=== PATIENT | male | born 1985 | race Caucasian/White ===

== ENCOUNTER 2017-06-24 18:31 | Emergency (ER) | payer SELFPAY ==
[~2017-06-24] VITALS: Ht 180.3 cm; Wt 70.8 kg
[2017-06-24 18:47] VITALS: Ht 180.3 cm; Wt 70.8 kg
[2017-06-24 19:42] LABS: BASOPHIL % 0.7 % (0-2); PLATELET COUNT 197 x10^3mcL (130-400); RED CELL DISTRIBUTION WIDTH 12.3 % (11.5-14.5)
[2017-06-24 19:49] LABS: CHLORIDE SERUM 100 mmol/L (98-107); GFR1 > 60 mL/min; GLUCOSE SERUM 115 mg/dL (74-106); POTASSIUM SERUM 3.5 mmol/L (3.5-5.1); SODIUM SERUM 139 mmol/L (136-145)
[2017-06-24 19:53] LABS: ALBUMIN 4.6 g/dL (3.4-5.0); ALKALINE PHOSPHATASE 63 U/L (46-116); ALT/SGPT 20 U/L (16-63); AMYLASE 62 U/L (25-115); BILIRUBIN TOTAL 0.5 mg/dL (0.20-1.00); LIPASE 64 IU/L (73-393)
[2017-06-24 20:21] LABS: AST/SGOT 17 U/L (15-37)
[2017-06-24 20:43] VITALS: BP 107/61
== END 2017-06-24 20:43 | disposition home or self-care (01) ==
LOC: ED 18:31
PROVIDERS: Emergency Medicine
DX: K52.9 Noninfective gastroenteritis and colitis, unspecified (principal); K21.9 Gastro-esophageal reflux disease without esophagitis
CPT/HCPCS: 83880; C9113; J2405; J2765; J7030